=== PATIENT | female | born 1965 | race Caucasian/White ===

== ENCOUNTER → 2016-12-03 | Outpatient (CLI) | payer OTHER | END | disposition home or self-care (01) | LOC: MAMMO 09:46 | PROVIDERS: ATTEND Family Medicine | DX: Z12.31 Encounter for screening mammogram for malignant neoplasm of breast (principal) ==

== ENCOUNTER 2018-05-13 09:58 | Emergency (ER) | payer BC ==
[2018-05-13] MEDS ORDERED: SODIUM CHLORIDE 0.9% 1000ML 1,000 ML IVS ONE (10:11)
[2018-05-13] MEDS ORDERED: ONDANSETRON ODT 8 MG TAB SL ONE (10:11)
--- NOTE | 2018-05-13 10:30 | RAD ---
EXAM DESCRIPTION: Chest,1 View CLINICAL HISTORY: syncope COMPARISON: Chest radiograph dated June 16, 2014 TECHNIQUE: Single upright portable frontal view of the chest FINDINGS: Cardiac silhouette shows cardiomegaly with mild central pulmonary vascular congestion. Lungs show no confluent infiltrates. Costophrenic angles are sharp. No pneumothorax. Included upper abdomen shows a nonspecific bowel gas pattern. No acute osseous abnormality. IMPRESSION: Cardiomegaly with mild central pulmonary vascular congestion. No sunny pulmonary edema. Electronically signed by: Michael Dick MD 05/13/2018 10:27 AM CDT
[2018-05-13] MEDS ORDERED: predniSONE 20 MG TAB PO ONE (12:46)
--- NOTE | 2018-05-13 12:55 | CT ---
EXAM DESCRIPTION: Abdomen/Pelvis w/Contrast CLINICAL HISTORY: 25 lb wt loss, syncope hypothermia COMPARISON: None. TECHNIQUE: CT of the abdomen and pelvis was performed following intravenous contrast. Multiple axial images and multiplanar reconstructions were generated. This exam was performed according to our departmental dose-optimization program, which includes automated exposure control, adjustment of the mA and/or kV according to patient size and/or use of iterative reconstruction technique. FINDINGS: Image quality mildly degraded by motion artifact. Lung bases: The visualized lung bases are clear. Solid organs: Probable bilateral nonobstructing renal calculi. The findings may be in part due to early excretion of contrast. Punctate hyperdensity measuring 3 mm in the left kidney is likely a calculus. No hydronephrosis or hydroureter. The liver, gallbladder, spleen, pancreas, and adrenal glands are unremarkable. Gastrointestinal: Scattered colonic diverticulosis without CT evidence for diverticulitis. The stomach and small intestine are unremarkable. The appendix is normal. No free fluid or free air. Vascular: Normal. Lymph nodes: No pathologically enlarged lymph nodes are present by CT size criteria. Musculoskeletal and soft tissues: No destructive osseous lesions are present. Urinary bladder and pelvic organs: The urinary bladder is normal. The uterus and adnexal structures are unremarkable. IMPRESSION: 1. Mildly motion degraded exam, but no definitive acute abdominal or pelvic CT findings. 2. Bilateral nonobstructing nephrolithiasis suspected, difficult to evaluate due to IV contrast in the renal collecting systems. 3. Colonic diverticulosis. 4. Other findings as above. Electronically signed by: Kai Moraes MD 05/13/2018 12:52 PM CDT
--- NOTE | 2018-05-13 12:58 | CT ---
EXAM DESCRIPTION: Head w/wo Contrast CLINICAL HISTORY: 25 lb, wt loss, syncope, hypothermia COMPARISON: None available TECHNIQUE: Multiple axial images of the head before and after intravenous contrast. Multiplanar reformatted images. This exam was performed according to our departmental dose-optimization program, which includes automated exposure control, adjustment of the mA and/or kV according to patient size and/or use of iterative reconstruction technique. FINDINGS: Image quality mildly degraded by motion artifact. There is no CT evidence of intracranial hemorrhage, mass effect, or large territory infarction. The brain parenchyma and ventricles are normal for the patient's age. No abnormal parenchymal or leptomeningeal enhancement. There are no abnormal extra-axial fluid collections. Vascular structures are unremarkable. There is no acute calvarial defect. The visualized paranasal sinuses and the mastoids are clear. IMPRESSION: Mildly motion degraded exam, but no definitive CT evidence of an acute intracranial abnormality. Electronically signed by: Kai Moraes MD 05/13/2018 12:55 PM CDT
[2018-05-13] MEDS ORDERED: CIPROFLOXACIN 500 MG TAB PO ONE (13:25)
--- NOTE | 2018-05-13 13:30 | ED.PDOC ---
History of Present Illness - General Chief Complaint: Syncope/Near Syncope Stated Complaint: Passed out while donating blood Time Seen by Provider: 05/13/18 10:02 Source: patient Exam Limitations: no limitations - History of Present Illness Initial Comments: the patient is a 52-year-old female presenting to the emergency room secondary to a syncopal episode while getting a blood draw. Even 30 minutes after the event the patient's blood pressure is still in the 90s on the systolic end. She is diaphoretic pale and weak. The patient has apparently lost about 25 pounds over the last 6 or 7 months secondary to eating difficulties from dental problems. The patient reports that over the last week or so she has been feeling chilled. No evidence of any overt infection. No respiratory or GI symptoms. No nuchal rigidity or meningeal signs. No focal neurological changes. No history of any thyroid problems. No history of any adrenal problems. No history of any strokes or intracranial hemorrhage. No history of any hydrocephalus. No history of any spinal trauma.no history of exposure. No history of chronic alcohol abuse. No history of tuberculosis. No history of sarcoidosis. Timing/Duration: unsure Severity: moderate Improving Factors: nothing Worsening Factors: nothing Associated Symptoms: diaphoresis, malaise, weakness Allergies/Adverse Reactions: Allergies NO KNOWN ALLERGY Allergy (Unverified 06/16/14 12:52) Home Medications: Ambulatory Orders Ciprofloxacin [Cipro] 500 mg PO BID #10 tab 05/13/18 predniSONE [Prednisone] 20 mg PO DAILY #10 tab 05/13/18 Review of Systems - Review of Systems Constitutional: States: diaphoresis, malaise, weakness EENTM: States: no symptoms reported Respiratory: States: no symptoms reported Cardiology: States: syncope Gastrointestinal/Abdominal: States: no symptoms reported Genitourinary: States: no symptoms reported Musculoskeletal: States: no symptoms reported Skin: States: no symptoms reported Neurological: States: no symptoms reported Endocrine: States: intolerance to cold Hematologic/Lymphatic: States: no symptoms reported All other Systems: No Change from Baseline Past Medical History (General) - Patient Medical History Hx Stroke: No Hx Congestive Heart Failure: No Hx Diabetes: No - Vaccination History Hx Influenza Vaccination: Yes - 2018 Hx Pneumococcal Vaccination: No - Social History Hx Tobacco Use: No Hx Alcohol Use: Yes - Social use - Female History Patient is a Female of Child Bearing Age (10 -59 yrs old): Yes - Menopausal Patient : No Family Medical History - Family History Mother Family History: No Known Living Status: Still Living Physical Exam - Physical Exam General Appearance: Alert, Ill Appearing Eye Exam: bilateral normal Ears, Nose, Throat: hearing grossly normal, normal ENT inspection Neck: full range of motion, supple Respiratory: lungs clear, normal breath sounds, no respiratory distress, no accessory muscle use Cardiovascular/Chest: normal peripheral pulses, regular rate, rhythm, no edema Peripheral Pulses: radial,right: 2+, radial,left: 2+, dorsalis pedis,right: 2+, dorsalis pedis,left: 2+ Gastrointestinal/Abdominal: non tender, soft Rectal Exam: deferred Back Exam: no CVA tenderness, no vertebral tenderness Extremity: normal range of motion, non-tender, normal inspection, no pedal edema 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, alert, normal mood/affect, oriented x 3 Skin Exam: diaphoresis, pallor Comments: Vital Signs - 24 hr 05/13/18 05/13/18 05/13/18 09:59 10:59 11:38 Temperature 94.4 F L 93.4 F L Pulse Rate [ 65 94 H 61 Pulse Ox] Respiratory 14 16 16 Rate Blood Pressure 93/72 107/73 117/77 [left arm] O2 Sat by Pulse 93 L 94 L 98 Oximetry 05/13/18 12:00 Temperature Pulse Rate [ 71 Pulse Ox] Respiratory 16 Rate Blood Pressure 108/80 [left arm] O2 Sat by Pulse 98 Oximetry Progress - Progress Progress: 05/13/18 13:41 the patient is a 52-year-old female presenting to emergency room after a syncopal episode while getting a blood draw. The patient had a fairly extended hypotension and bradycardia in the hour or 2 after the event. It was accompanied by significant hypothermia with temperatures around 93-94F. No evidence of exposure. The patient has had significant recent weight loss secondary to difficulties with eating due to dental issues, presumably. No history of any recent infection. She reports feeling cold for the week before. No history of any adrenal insufficiency, brain or upper spinal cord injuries recently. Workup here included CT of the head with IV contrast, CT of abdomen and pelvis with IV contrast, chest x-ray and fairly extensive lab work. No etiology has otherwise been found. No evidence of any large infection. She does have a small urinary tract infection and will be placed on ciprofloxacin. Thyroid studies including a TSH, free T3 and free T4 are within normal limits. Cortisol level is a send out. The patient received a liter of IV fluids which did help correct the hypotension. Hypothermia did eventually correct after a dose of prednisone was given, whether or not this is causative I cannot say. I do want her to follow up with Dr. Baldemar Virgen late this week or early next week for follow-up of the cortisol level. I also want her to take her temperature 5 times daily and record it. If it is falling back off significantly then she needs to be seen again. I'm going to place her on prednisone 20 mg daily for 5 days only. If the hypothermia or hypotension recurs then repeat thyroid studies may be worthwhile along with possibly an MRI of the brain, assuming the cortisol levels are normal. If it does recur in spite of above then endocrinology consultation and possibly neurology consultation may be warranted. She does have a mildly low sodium which will need to be followed. a blood culture was done here and the results will need to be followed. For now we will have the patient take a vitamin B complex tablet twice daily as thiamine deficiency has in certain cases been associated with hypothermia. The patient is feeling much better at this point. ER warnings were given for any worsening. - Results/Orders Results/Orders: chest x-ray shows very mild cardiomegaly and mild vascular congestion. CT of the head shows no acute intracranial process this was done with and without contrast. No evidence of any mass or significant infarction. No evidence of hydrocephalus. CT scan of abdomen and pelvis with IV contrast failed to show any acute pathology as well. No evidence of any obvious adrenal pathology. No evidence of any mass or abscess. EKG shows sinus bradycardia at 59 bpm Laboratory Tests 05/13/18 05/13/18 05/13/18 10:10 10:10 10:10 WBC 6.2 RBC 4.85 Hgb 14.4 Hct 42.4 MCV 87.5 MCH 29.8 MCHC 34.1 RDW 14.1 Plt Count 238 MPV 8.8 Absolute Neuts (auto) 2.90 Absolute Lymphs (auto) 2.40 Absolute Monos (auto) 0.60 Absolute Eos (auto) 0.20 Absolute Basos (auto) 0.10 Neutrophils % 46.4 Lymphocytes % 39.5 Monocytes % 10.0 H Eosinophils % 3.1 Basophils % 1.0 PT INR PTT (SP) D-Dimer, Quantitative Sodium 133 L Potassium 3.5 L Chloride 102 Carbon Dioxide 20 L Anion Gap 14.5 BUN 17 Creatinine 0.79 BUN/Creatinine Ratio 21.5 H POC Glucose 129 H Random Glucose 134 H Serum Osmolality 269.9 L Lactic Acid Calcium 8.8 Magnesium 2.0 Total Bilirubin 0.5 AST 27 ALT 31 Alkaline Phosphatase 58 Creatine Kinase 72 CK-MB (CK-2) 1.0 CK-MB (CK-2) % Not Reportable Troponin I < 0.02 B-Natriuretic Peptide 8.5 Serum Total Protein 7.1 Albumin 4.0 Globulin 3.1 Albumin/Globulin Ratio 1.3 Amylase 65 Lipase 30 TSH 2.95 Free T4 Free T3 pg/mL Urine Color Urine Appearance Urine pH Ur Specific [place] Urine Protein Urine Glucose (UA) Urine Ketones Urine Blood Urine Nitrite Urine Bilirubin Urine Urobilinogen Ur Leukocyte Esterase Urine RBC Urine WBC Ur Epithelial Cells Urine Bacteria 05/13/18 05/13/18 05/13/18 10:10 10:10 11:48 WBC RBC Hgb Hct MCV MCH MCHC RDW Plt Count MPV Absolute Neuts (auto) Absolute Lymphs (auto) Absolute Monos (auto) Absolute Eos (auto) Absolute Basos (auto) Neutrophils % Lymphocytes % Monocytes % Eosinophils % Basophils % PT 10.3 INR 1.03 PTT (SP) 23.5 D-Dimer, Quantitative 0.19 Sodium Potassium Chloride Carbon Dioxide Anion Gap BUN Creatinine BUN/Creatinine Ratio POC Glucose Random Glucose Serum Osmolality Lactic Acid Calcium Magnesium Total Bilirubin AST ALT Alkaline Phosphatase Creatine Kinase CK-MB (CK-2) CK-MB (CK-2) % Troponin I B-Natriuretic Peptide Serum Total Protein Albumin Globulin Albumin/Globulin Ratio Amylase Lipase TSH Free T4 1.02 Free T3 pg/mL 3.41 Urine Color Urine Appearance Urine pH Ur Specific [place] Urine Protein Urine Glucose (UA) Urine Ketones Urine Blood Urine Nitrite Urine Bilirubin Urine Urobilinogen Ur Leukocyte Esterase Urine RBC Urine WBC Ur Epithelial Cells Urine Bacteria 05/13/18 05/13/18 11:48 12:22 WBC RBC Hgb Hct MCV MCH MCHC RDW Plt Count MPV Absolute Neuts (auto) Absolute Lymphs (auto) Absolute Monos (auto) Absolute Eos (auto) Absolute Basos (auto) Neutrophils % Lymphocytes % Monocytes % Eosinophils % Basophils % PT INR PTT (SP) D-Dimer, Quantitative Sodium Potassium Chloride Carbon Dioxide Anion Gap BUN Creatinine BUN/Creatinine Ratio POC Glucose Random Glucose Serum Osmolality Lactic Acid 1.0 Calcium Magnesium Total Bilirubin AST ALT Alkaline Phosphatase Creatine Kinase CK-MB (CK-2) CK-MB (CK-2) % Troponin I B-Natriuretic Peptide Serum Total Protein Albumin Globulin Albumin/Globulin Ratio Amylase Lipase TSH Free T4 Free T3 pg/mL Urine Color Yellow Urine Appearance Clear Urine pH 6.5 Ur Specific [place] 1.020 Urine Protein Negative Urine Glucose (UA) Negative Urine Ketones Negative Urine Blood Negative Urine Nitrite Positive H Urine Bilirubin Negative Urine Urobilinogen 0.2 Ur Leukocyte Esterase Negative Urine RBC 0 Urine WBC 0 Ur Epithelial Cells 0 Urine Bacteria 4+ H - EKG/XRAY/CT CT Ordered: No Departure - Departure Clinical Impression: Cystitis, Hyponatremia Syncope Qualifiers: Syncope type: vasovagal syncope Qualified Code(s): R55 - Syncope and collapse Hypothermia Qualifiers: Encounter type: initial encounter Qualified Code(s): T68.XXXA - Hypothermia, initial encounter Disposition: Discharge to Home or Self Care Condition: Fair Departure Forms: ED Discharge - Pt. Copy, Patient Portal Self Enrollment Instructions: DI for Syncope in Adults (Fainting) Diet: regular diet Activity: increase activity as tolerated Referrals: Michael Virgen MD [Primary Care Provider] - 1-5 Days Prescriptions: Ciprofloxacin [Cipro] 500 mg PO BID #10 tab predniSONE [Prednisone] 20 mg PO DAILY #10 tab Home Medications: Ambulatory Orders Ciprofloxacin [Cipro] 500 mg PO BID #10 tab 05/13/18 predniSONE [Prednisone] 20 mg PO DAILY #10 tab 05/13/18 Additional Instructions: the patient is a 52-year-old female presenting to emergency room after a syncopal episode while getting a blood draw. The patient had a fairly extended hypotension and bradycardia in the hour or 2 after the event. It was accompanied by significant hypothermia with temperatures around 93-94F. No evidence of exposure. The patient has had significant recent weight loss secondary to difficulties with eating due to dental issues, presumably. No history of any recent infection. She reports feeling cold for the week before. No history of any adrenal insufficiency, brain or upper spinal cord injuries recently. Workup here included CT of the head with IV contrast, CT of abdomen and pelvis with IV contrast, chest x-ray and fairly extensive lab work. No etiology has otherwise been found. No evidence of any large infection. She does have a small urinary tract infection and will be placed on ciprofloxacin. Thyroid studies including a TSH, free T3 and free T4 are within normal limits. Cortisol level is a send out. The patient received a liter of IV fluids which did help correct the hypotension. Hypothermia did eventually correct after a dose of prednisone was given, whether or not this is causative I cannot say. I do want her to follow up with Dr. Baldemar Virgen late this week or early next week for follow-up of the cortisol level. I also want her to take her temperature 5 times daily and record it. If it is falling back off significantly then she needs to be seen again. I'm going to place her on prednisone 20 mg daily for 5 days only. If the hypothermia or hypotension recurs then repeat thyroid studies may be worthwhile along with possibly an MRI of the brain, assuming the cortisol levels are normal. If it does recur in spite of above then endocrinology consultation and possibly neurology consultation may be warranted. She does have a mildly low sodium which will need to be followed. a blood culture was done here and the results will need to be followed. For now we will have the patient take a vitamin B complex tablet twice daily as thiamine deficiency has in certain cases been associated with hypothermia. The patient is feeling much better at this point. ER warnings were given for any worsening.
[2018-05-13] MEDS ORDERED: THIAMINE HCL 100 MG TAB PO ONE (13:42)
[2018-05-13 14:21] VITALS: BP 125/75; TEMP 97.5; O2SAT 97
[2018-05-14] MEDS ORDERED: THIAMINE HCL 100 MG TAB PO ONE (13:29)
== END 2018-05-13 14:00 | disposition home or self-care (01) ==
LOC: ER 09:58
DX: R55 Syncope and collapse (principal); T68.XXXA Hypothermia, initial encounter; N30.90 Cystitis, unspecified without hematuria; E87.1 Hypo-osmolality and hyponatremia; R00.1 Bradycardia, unspecified; X58.XXXA Exposure to other specified factors, initial encounter; Y92.9 Unspecified place or not applicable
CPT/HCPCS: 36415; 70470; 71045; 74177; 80053; 81001; 82150; 82533; 82550; 82553; 82948; 83605; 83690; 83735; 83880; 84439; 84443; 84481; 84484; 85025; 85379; 85610; 85730; 87040; 87086; 93005; J7030; J7512